=== PATIENT | female | born 1995 | race African-American/Black ===

== ENCOUNTER 2019-09-14 13:04 | Emergency (ER) | payer OTHER ==
[2019-09-14] MEDS ORDERED: ALBUTEROL SO4 2.5/IPRATROPIUM 0.5 INH SOL 3 ML VIAL.NEB. NEB ONE (13:12)
[2019-09-14 13:13] VITALS: BMI 39.1
--- NOTE | 2019-09-14 13:14 | PDOC ---
Rapid Medical Evaluation Time Seen by Provider: 09/14/19 13:09 Medical Evaluation: Allergies Allergy/AdvReac Type Severity Reaction Status Date / Time divalproex sodium Allergy Verified 08/12/19 22:42 [From Depakote] meperidine HCl [From Demerol] Allergy Verified 08/12/19 22:42 09/14/19 13:10 Pt presents for chest pain and cough for one day. She states the chest pain is stabbing and worse when she takes a deep breath or when she touches her chest. No recent travel. Exam: Tachy 110, O2 sat 95. Lungs diminished at the bases Orders: EKG, CXR, duoneb, influenza Pt to proceed to the ER for further evaluation Discharge Disposition - Diagnosis Cough - Referrals - Patient Instructions - Post Discharge Activity
--- NOTE | 2019-09-14 13:53 | EKG ---
Test Reason : Blood Pressure : / mmHG Vent. Rate : 110 BPM Atrial Rate : 110 BPM P-R Int : 144 ms QRS Dur : 074 ms QT Int : 312 ms P-R-T Axes : 060 016 016 degrees QTc Int : 422 ms POOR DATA QUALITY, INTERPRETATION MAY BE ADVERSELY AFFECTED SINUS TACHYCARDIA OTHERWISE NORMAL ECG WHEN COMPARED WITH ECG OF 16-JUL-2016 17:58, NO SIGNIFICANT CHANGE WAS FOUND Confirmed by Froylan Costa ([id number]) on 09/14/2019 1:53:15 PM Referred By: Confirmed By:Froylan Costa
--- NOTE | 2019-09-14 14:23 | PDOC ---
*Physical Exam - Vital Signs Last Vital Signs Temp Pulse Resp BP Pulse Ox 98.8 F 100 H 18 148/92 99 09/14/19 13:05 09/14/19 13:05 09/14/19 13:05 09/14/19 13:05 09/14/19 13:05 - Physical Exam 09/14/19 14:23 The patient was examined by [jerry Christian] under my direct supervision. I personally evaluated the patient. I concur with the above findings and the plan of care. ED Treatment Course - LABORATORY CBC & Chemistry Diagram: 09/14/19 14:20 09/14/19 14:20 - Medications Given in the ED: ED Medications Discontinued Medications Generic Name Dose Route Start Last Admin Trade Name Freq PRN Reason Stop Dose Admin Albuterol/Ipratropium 1 amp 09/14/19 13:12 09/14/19 13:19 Duoneb - NEB 09/14/19 13:13 1 amp ONCE ONE Administration Discharge - Discharge Information Problems reviewed: Yes Clinical Impression/Diagnosis: Cough Condition: Improved Disposition: HOME - Additional Discharge Information Prescriptions: Azithromycin [Zithromax Tri-Andrez (3 DAYS) -] 500 mg PO DAILY #3 tablet - Follow up/Referral Referrals: Adeline Espinal MD [Primary Care Provider] - - Patient Discharge Instructions Patient Printed Discharge Instructions: DI for Cough -- Adult Additional Instructions: Take Tylenol extra strength or Motrin 600 mg every 6-8 hours for discomfort. Take antibiotics for the next 2 days until completed. Wash hands and cover mouth when coughing. - Post Discharge Activity Work/Back to School Note: Back to Work
[2019-09-14 14:51] LABS: BASO % 0.4 % (0-2.0); EOS % 0.4 % (0-4.5); HEMATOCRIT 37.8 % (32.4-45.2); HEMOGLOBIN 12.8 GM/dL (10.7-15.3); LYMPH % 9.1 % (8-40); MCH 30.4 pg (25.7-33.7); MCHC 33.7 g/dl (32.0-36.0); MEAN CELL VOLUME 90.3 fl (80-96); MEAN PLT VOLUME 7.8 fl (7.5-11.1); MONO % 6.5 % (3.8-10.2); NEUT % 83.6 % (42.8-82.8); PLATELET COUNT 314 K/MM3 (134-434); RBC 4.19 M/mm3 (3.60-5.2); RDW 13.4 % (11.6-15.6); WHITE BLOOD COUNT 9.2 K/mm3 (4.0-10.0)
[2019-09-14 15:05] LABS: INR 1.11 (0.83-1.09); PROTHROMBIN TIME (PATIENT) 13.1 SEC (9.7-13.0)
[2019-09-14] MEDS ORDERED: KETOROLAC TROMETHAMINE 30 MG/1 ML VIAL IVPUSH ONE (15:15)
--- NOTE | 2019-09-14 15:18 | PDOC ---
History of Present Illness - General Chief Complaint: Pain Stated Complaint: CHEST PAIN Time Seen by Provider: 09/14/19 13:09 History Source: Patient Exam Limitations: No Limitations - History of Present Illness Initial Comments: 09/14/19 15:15 23-year-old female presents the ED with complaints of midsternal sharp pain worsened with deep breathing and coughing radiating to her back upon awakening this morning. Patient states no recent illness recent injury, travel smoking history, or medical history. Patient states took multi symptoms Tylenol with good effect but only for a few hours to relieve her discomfort. Patient denies recent sick contacts recent vaccinations, or job related environmental concern. Is this a multiple visit Asthma Patient?: No Timing/Duration: 4-6 hours Severity: mild Associated Symptoms: reports: chest pain, cough Past History - Travel Traveled outside of the country in the last 30 days: No Close contact w/someone who was outside of country & ill: No - Past Medical History Allergies/Adverse Reactions: Allergies Allergy/AdvReac Type Severity Reaction Status Date / Time divalproex sodium Allergy Verified 09/14/19 13:13 [From Depakote] meperidine HCl [From Demerol] Allergy Verified 09/14/19 13:13 Home Medications: Ambulatory Orders NK [No Known Home Medication] 09/14/19 Cardiac Disorders: No COPD: No - Reproductive History (#): 2 Para: 0 Spontaneous : 1 - Psycho Social/Smoking Cessation Hx Smoking History: Never smoked Number of Cigarettes Smoked Daily: 3 'Breaking Loose' booklet given: 07/16/16 Hx Alcohol Use: Yes (RARE) Drug/Substance Use Hx: No Substance Use Type: None Patient Lives Alone: No Lives with/in: daughter Review of Systems - Review of Systems Is the patient limited Divehi proficient: No Constitutional: No: Symptoms Reported HEENTM: No: Symptoms Reported Respiratory: Yes: Cough Cardiac (ROS): Yes: Chest Pain ABD/GI: No: Symptoms Reported : No: Symptoms Reported Musculoskeletal: No: Symptoms Reported Integumentary: No: Symptoms Reported Neurological: No: Symptoms reported Endocrine: No: Symptoms Reported Hematologic/Lymphatic: No: Symptoms Reported *Physical Exam - Vital Signs Last Vital Signs Temp Pulse Resp BP Pulse Ox 98.8 F 100 H 18 148/92 99 09/14/19 13:05 09/14/19 13:05 09/14/19 13:05 09/14/19 13:05 09/14/19 13:05 - Physical Exam General Appearance: Yes: Nourished, Appropriately Dressed. No: Apparent Distress HEENT: positive: EOMI, MAIK, TMs Normal, Pharynx Normal. negative: Pale Conjunctivae Neck: positive: Supple Respiratory/Chest: positive: Chest Tender (Bilateral chest wall near sternum, bilateral thoracic paraspinous ), Lungs Clear, Normal Breath Sounds. negative: Respiratory Distress, Accessory Muscle Use Cardiovascular: positive: Regular Rhythm, Regular Rate (88 on portable monitor) . negative: Murmur Gastrointestinal/Abdominal: positive: Soft. negative: Tenderness Integumentary: positive: Normal Color, Warm, Moist Neurologic: positive: Motor Strength 5/5 (Ambulatory) ED Treatment Course - LABORATORY CBC & Chemistry Diagram: 09/14/19 14:20 09/14/19 14:20 - ADDITIONAL ORDERS Additional order review: Laboratory Results 09/14/19 14:20 PT with INR 13.10 H INR 1.11 H 09/14/19 14:20 RBC 4.19 MCV 90.3 MCHC 33.7 RDW 13.4 MPV 7.8 Neutrophils % 83.6 H D Lymphocytes % 9.1 D Monocytes % 6.5 Eosinophils % 0.4 D Basophils % 0.4 - Medications Given in the ED: ED Medications Discontinued Medications Generic Name Dose Route Start Last Admin Trade Name Freq PRN Reason Stop Dose Admin Albuterol/Ipratropium 1 amp 09/14/19 13:12 09/14/19 13:19 Duoneb - NEB 09/14/19 13:13 1 amp ONCE ONE Administration Medical Decision Making - Medical Decision Making 09/14/19 15:19 Patient with complaints of midsternal pain rating to her back since awakening this morning along with cough. Patient took multisymptom Tylenol with moderate effect. Exam: Patient reproducible bilateral sternal tenderness along with thoracic paraspinous. Lungs clear Plan: Toradol IV labs x-ray EKG ordered from [facility]. We will discharge home with azithromycin Discharge - Discharge Information Problems reviewed: Yes Clinical Impression/Diagnosis: Cough Condition: Improved Disposition: HOME - Follow up/Referral Referrals: Adeline Espinal MD [Primary Care Provider] - - Patient Discharge Instructions Patient Printed Discharge Instructions: DI for Cough -- Adult Additional Instructions: Take Tylenol extra strength or Motrin 600 mg every 6-8 hours for discomfort. Take antibiotics for the next 2 days until completed. Wash hands and cover mouth when coughing. - Post Discharge Activity Work/Back to School Note: Back to Work
[2019-09-14] MEDS ORDERED: KETOROLAC TROMETHAMINE 30 MG/1 ML VIAL ONE (15:20)
[2019-09-14 15:33] VITALS: BP 128/78; PULSE 88; TEMP 98.2
[2019-09-14 15:47] LABS: ALBUMIN 3.8 g/dl (3.4-5.0); BILIRUBIN,TOTAL 0.2 mg/dL (0.2-1); BLOOD UREA NITROGEN 15.3 mg/dL (7-18); CREATININE 0.7 mg/dL (0.55-1.3); POTASSIUM 3.7 mmol/L (3.5-5.1); TOT PROT 7.6 g/dl (6.4-8.2)
== END 2019-09-14 15:30 | disposition home or self-care (01) ==
LOC: JER 13:04
PROC: 3E0F7GC Introduction of Other Therapeutic Substance into Respiratory Tract, Via Natural or Artificial Opening (ICD-10-PCS; principal; 2019-09-14)
PROC: 3E0333Z Introduction of Anti-inflammatory into Peripheral Vein, Percutaneous Approach (ICD-10-PCS; 2019-09-14)
DX: R05 Cough (principal)
CPT/HCPCS: 36415; 71046-TC-FY; 80053; 82550; 82553; 84484; 85025; 85610; 87804; 93005; 93010; 99283-25

== ENCOUNTER 2020-02-28 13:46 | Emergency (ER) | payer OTHER ==
--- NOTE | 2020-02-28 14:21 | PDOC ---
History of Present Illness - General Chief Complaint: Weakness Stated Complaint: Weakness Time Seen by Provider: 02/28/20 14:04 - History of Present Illness Initial Comments: Julia Colon is a 24 y/o female with no reported PMH presenting today with generalized weakness that started two hours ago. 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 Feels lightheaded but no LOC. No chest pain/shortness of breath. No headache. No abd pain. No upper or lower extremity pain. No dysuria/diarrhea. No nausea/vomiting. No fever/chills. Not on any OCPs. No recent travel. No smoking history. Currently on her menstrual cycle. Past History - Medical History Allergies/Adverse Reactions: Allergies Allergy/AdvReac Type Severity Reaction Status Date / Time divalproex sodium Allergy Verified 09/14/19 13:13 [From Depakote] meperidine HCl [From Demerol] Allergy Verified 09/14/19 13:13 Home Medications: Ambulatory Orders Azithromycin [Zithromax Tri-Andrez (3 DAYS) -] 500 mg PO DAILY #3 tablet 09/14/19 Cardiac Disorders: No COPD: No - Reproductive History (#): 2 Para: 0 Spontaneous : 1 - Psycho-Social/Smoking History Smoking History: Never smoked Number of Cigarettes Smoked Daily: 3 'Breaking Loose' booklet given: 07/16/16 - Substance Abuse Hx (Audit-C & DAST Scrn) How often the patient has a drink containing alcohol: Never Score: In Men: 4 or > Positive; In Women: 3 or > Positive: 0 Screen Result (Pos requires Nsg. Audit-10AR): Negative In the last yr the pt used illegal drug/Rx for NonMed reason: No Score: Yes response is considered Positive: 0 Screen Result (Positive result requires Nsg. DAST-10): Negative Review of Systems - Review of Systems Comments:: GENERAL/CONSTITUTIONAL: No fever or chills. Reports generalized weakness. HEAD, EYES, EARS, NOSE AND THROAT: No change in vision. No change in hearing. No sore throat._ CARDIOVASCULAR: No chest pain or shortness of breath_ RESPIRATORY: Denies cough, hemoptysis_ GASTROINTESTINAL: No nausea, vomiting, diarrhea or constipation._ GENITOURINARY: No dysuria, frequency, or change in urination._ MUSCULOSKELETAL: No joint or muscle swelling or pain. No neck or back pain. Reports left arm weakness. SKIN: No rash_ NEUROLOGIC: No headache, vertigo, loss of consciousness, or change in strength/sensation. ENDOCRINE: No increased thirst. No abnormal weight change_ HEMATOLOGIC/LYMPHATIC: No anemia, easy bleeding, or history of blood clots._ ALLERGIC/IMMUNOLOGIC: No hives or skin allergy._ *Physical Exam - Vital Signs Last Vital Signs Temp Pulse Resp BP Pulse Ox 98.0 F 110 H 20 135/75 96 02/28/20 13:55 02/28/20 13:55 02/28/20 13:55 02/28/20 13:55 02/28/20 13:55 - Physical Exam GENERAL: Awake, alert, and oriented to person/place/time, in no acute distress_ HEAD: No signs of trauma, normocephalic, atraumatic _ EYES: PERRLA, EOMI, sclera anicteric, conjunctiva clear_ ENT: Hearing grossly normal, nares patent, oropharynx clear without exudates. No uvular deviation. Moist mucosa_ NECK: Normal ROM, supple, no lymphadenopathy, JVD, or masses_ LUNGS: No distress, speaks in full sentences, clear to auscultation bilaterally _ HEART: Regular rate and rhythm, normal S1 and S2, no murmurs appreciated, peripheral pulses normal and equal bilaterally._ ABDOMEN: Soft, nontender, normoactive bowel sounds. No guarding, no rebound. No masses_ EXTREMITIES: Normal inspection, Normal range of motion, no edema. No clubbing or cyanosis_ NEUROLOGICAL: Mental status: A/Ox3 CN II-XII tested and intact. Sensation intact to sharp/dull differentiation in all extremities. Motor: Normal tone and bulk. No abnormal movements appreciated. No pronator drift. Strength tested and 5/5 in bilateral wrist flexion/extension, elbow flexion/extension, shoulder abduction, straight leg raise, knee fl exion/extension, ankle dorsiflexion/plantarflexion. Patient ambulates with a steady gait. Coordination: Finger to nose and heel to simmons testing intact bilaterally. SKIN: Warm, Dry, normal turgor, no rashes or lesions noted_ ED Treatment Course - LABORATORY CBC & Chemistry Diagram: 02/28/20 15:00 02/28/20 14:41 Medical Decision Making - Medical Decision Making 24F no reported PMH presented today with generalized weakness and left arm weakness that started this morning. Pt ambulatory in the ED. -cbc, cmp -ekg, cxr -CTA -ua, ucx 02/28/20 14:56 EKG shows 99 bpm, NSR, no axis deviation, NE 144, QTc 438, no ST elevation/depression. 02/28/20 15:19 CXR negative for acute chest pathology. 02/28/20 17:06 Labs reviewed. Laboratory Last Values WBC 9.9 K/mm3 (4.0-10.0) 02/28/20 15:00 RBC 4.18 M/mm3 (3.60-5.2) 02/28/20 15:00 Hgb 12.9 GM/dL (10.7-15.3) 02/28/20 15:00 Hct 38.5 % (32.4-45.2) 02/28/20 15:00 MCV 92.1 fl (80-96) 02/28/20 15:00 MCH 30.8 pg (25.7-33.7) 02/28/20 15:00 MCHC 33.5 g/dl (32.0-36.0) 02/28/20 15:00 RDW 13.6 % (11.6-15.6) 02/28/20 15:00 Plt Count 362 K/MM3 (134-434) 02/28/20 15:00 MPV 8.5 fl (7.5-11.1) 02/28/20 15:00 Absolute Neuts (auto) 6.8 K/mm3 (1.5-8.0) 02/28/20 15:00 Neutrophils % 68.3 % (42.8-82.8) 02/28/20 15:00 Lymphocytes % 24.6 % (8-40) D 02/28/20 15:00 Monocytes % 5.4 % (3.8-10.2) 02/28/20 15:00 Eosinophils % 0.7 % (0-4.5) 02/28/20 15:00 Basophils % 1.0 % (0-2.0) 02/28/20 15:00 Nucleated RBC % 0 % (0-0) 02/28/20 15:00 Sodium 140 mmol/L (136-145) 02/28/20 14:41 Potassium 4.2 mmol/L (3.5-5.1) 02/28/20 14:41 Chloride 107 mmol/L (98-107) 02/28/20 14:41 Carbon Dioxide 24 mmol/L (21-32) 02/28/20 14:41 Anion Gap 8 MMOL/L (8-16) 02/28/20 14:41 BUN 10.7 mg/dL (7-18) 02/28/20 14:41 Creatinine 0.8 mg/dL (0.55-1.3) 02/28/20 14:41 Est GFR (CKD-EPI)AfAm 118.76 02/28/20 14:41 Est GFR (CKD-EPI)NonAf 102.47 02/28/20 14:41 Random Glucose 99 mg/dL (74-106) 02/28/20 14:41 Calcium 9.4 mg/dL (8.5-10.1) 02/28/20 14:41 Total Bilirubin 0.4 mg/dL (0.2-1) 02/28/20 14:41 AST 18 U/L (15-37) 02/28/20 14:41 ALT 20 U/L (13-61) 02/28/20 14:41 Alkaline Phosphatase 74 U/L (45-117) 02/28/20 14:41 Total Protein 7.7 g/dl (6.4-8.2) 02/28/20 14:41 Albumin 3.7 g/dl (3.4-5.0) 02/28/20 14:41 TSH 1.12 uIU/ml (0.358-3.74) 02/28/20 14:41 Serum , Qual Negative 02/28/20 15:00 Urine Color Yellow 02/28/20 14:55 Urine Appearance Clear 02/28/20 14:55 Urine pH 6.5 (5.0-8.0) 02/28/20 14:55 Ur Specific [place] 1.017 (1.010-1.035) 02/28/20 14:55 Urine Protein Negative (NEGATIVE) 02/28/20 14:55 Urine Glucose (UA) Negative (NEGATIVE) 02/28/20 14:55 Urine Ketones Negative (NEGATIVE) 02/28/20 14:55 Urine Blood 3+ (NEGATIVE) H 02/28/20 14:55 Urine Nitrite Negative (NEGATIVE) 02/28/20 14:55 Urine Bilirubin Negative (NEGATIVE) 02/28/20 14:55 Urine Urobilinogen 0.2 mg/dL (0.2-1.0) 02/28/20 14:55 Ur Leukocyte Esterase Trace (NEGATIVE) 02/28/20 14:55 Urine WBC (Auto) 6 /uL (0-25.8) 02/28/20 14:55 Urine RBC (Auto) 353 /uL (0-23.9) 02/28/20 14:55 Urine Casts (Auto) 0 /uL (0-3.1) 02/28/20 14:55 U Epithel Cells (Auto) 10 /uL (0-25.1) 02/28/20 14:55 Urine Bacteria (Auto) 32 /uL (0-1359) 02/28/20 14:55 Urine HCG, Qual Negative 02/28/20 14:55 02/28/20 18:12 CTA negative for PE or acute intrathoracic pathology. 02/28/20 18:43 Pt reassessed. Plan to d/c home with PCP f/u. All questions answered. Return precautions given. Pt verbalized understanding and agreement with plan. Discharge - Discharge Information Problems reviewed: Yes Clinical Impression/Diagnosis: Lightheadedness, Weakness Condition: Stable Disposition: HOME - Admission No - Follow up/Referral Referrals: Adeline Espinal MD [Primary Care Provider] - - Patient Discharge Instructions Patient Printed Discharge Instructions: DI for Muscle Weakness Additional Instructions: Please keep yourself as hydrated and nourished as possible. Please make a follow up appointment with your primary care doctor. If you experience any new, worsening or concerning symptoms, including worsening weakness, lethargy, arm pain, chest pain, shortness of breath, nausea, vomiting, dizziness, or any other concerns, please return to the emergency department. - Post Discharge Activity
[2020-02-28] MEDS ORDERED: SODIUM CHLORIDE 0.9% 500 ML INFUS.BAG IV ONE (14:27)
[2020-02-28 14:29] VITALS: BP 135/75; PULSE 110; TEMP 98; BMI 30.7
--- NOTE | 2020-02-28 15:28 | PDOC ---
Attending Attestation - Resident Resident Name: KristianHector - ED Attending Attestation I have performed the following: I have examined & evaluated the patient, The case was reviewed & discussed with the resident, I agree w/resident's findings & plan, Exceptions are as noted - HPI HPI: 24 yo F no stated PMH presents with generalized weakness, near syncope. She states she developed chest tightness as well. Denies SOB, leg swelling, calf pain. Denies any recent immobilization, OCP use, smoking. No recent illness, no fever/chills. - Physicial Exam PE: GENERAL: Awake, alert, and fully oriented. Appears anxious. Hyperventilating, sitting in tripod position on stretcher. HEAD: No signs of trauma EYES: PERRLA, EOMI, sclera anicteric, conjunctiva clear ENT: Auricles normal inspection, hearing grossly normal, nares patent, oropharynx clear without exudates. Moist mucosa NECK: Normal ROM, supple, no lymphadenopathy, JVD, or masses LUNGS: Breath sounds equal, clear to auscultation bilaterally. No wheezes, and no crackles HEART: Regular rate and rhythm, normal S1 and S2, no murmurs, rubs or gallops ABDOMEN: Soft, nontender, normoactive bowel sounds. No guarding, no rebound. No masses EXTREMITIES: Normal range of motion, no edema. No clubbing or cyanosis. No cords, erythema, or tenderness NEUROLOGICAL: Cranial nerves II through XII grossly intact. Normal speech, normal gait. Motor and sensation intact SKIN: Warm, dry, normal turgor, no rashes or lesions noted. - Medical Decision Making Based on vitals and her initial appearance, CTA was obtained. No acute findings. Stable for DC home. Discharge - Discharge Information Problems reviewed: Yes Clinical Impression/Diagnosis: Lightheadedness, Weakness Condition: Stable Disposition: HOME - Follow up/Referral Referrals: Adeline Espinal MD [Primary Care Provider] - - Patient Discharge Instructions Patient Printed Discharge Instructions: DI for Muscle Weakness Additional Instructions: Please keep yourself as hydrated and nourished as possible. Please make a follow up appointment with your primary care doctor. If you experience any new, worsening or concerning symptoms, including worsening weakness, lethargy, arm pain, chest pain, shortness of breath, nausea, vomiting, dizziness, or any other concerns, please return to the emergency department. - Post Discharge Activity
[2020-02-28 15:43] LABS: EOS % 0.7 % (0-4.5); HEMATOCRIT 38.5 % (32.4-45.2); HEMOGLOBIN 12.9 GM/dL (10.7-15.3); LYMPH % 24.6 % (8-40); MCH 30.8 pg (25.7-33.7); MCHC 33.5 g/dl (32.0-36.0); MEAN CELL VOLUME 92.1 fl (80-96); MEAN PLT VOLUME 8.5 fl (7.5-11.1); MONO % 5.4 % (3.8-10.2); NEUT % 68.3 % (42.8-82.8); PLATELET COUNT 362 K/MM3 (134-434); RBC 4.18 M/mm3 (3.60-5.2); RDW 13.6 % (11.6-15.6); WHITE BLOOD COUNT 9.9 K/mm3 (4.0-10.0)
[2020-02-28 15:51] LABS: HCG,QUALITATIVE URINE Negative
[2020-02-28 15:53] LABS: EPI CELLS 10 /uL (0-25.1); HYALINE CASTS 0 /uL (0-3.1); PH,URINE 6.5 (5.0-8.0); URINE APPEARANCE CLEAR; URINE BACTERIA 32 /uL (0-1359); URINE BILIRUBIN NEGATIVE (NEGATIVE); URINE COLOR YELLOW; URINE GLUCOSE (UA) NEGATIVE (NEGATIVE); URINE KETONE NEGATIVE (NEGATIVE); URINE LEUK ESTERASE TRACE (NEGATIVE); URINE NITRITE NEGATIVE (NEGATIVE); URINE PROTEIN NEGATIVE (NEGATIVE); URINE RBC 353 /uL (0-23.9); URINE UROBILINOGEN 0.2 mg/dL (0.2-1.0); URINE WBC 6 /uL (0-25.8)
[2020-02-28 15:56] LABS: ALBUMIN 3.7 g/dl (3.4-5.0); BILIRUBIN,TOTAL 0.4 mg/dL (0.2-1); BLOOD UREA NITROGEN 10.7 mg/dL (7-18); CALCIUM 9.4 mg/dL (8.5-10.1); CREATININE 0.8 mg/dL (0.55-1.3); POTASSIUM 4.2 mmol/L (3.5-5.1); TOT PROT 7.7 g/dl (6.4-8.2)
--- NOTE | 2020-02-28 16:08 | EKG ---
Test Reason : Blood Pressure : / mmHG Vent. Rate : 099 BPM Atrial Rate : 099 BPM P-R Int : 144 ms QRS Dur : 074 ms QT Int : 342 ms P-R-T Axes : 057 016 021 degrees QTc Int : 438 ms NORMAL SINUS RHYTHM NORMAL ECG Confirmed by MD ESCOBAR GREGORY ([id number]) on 02/28/2020 4:08:11 PM Referred By: Confirmed By:CJ ESCOBAR MD
== END 2020-02-28 19:06 | disposition home or self-care (01) ==
LOC: JER 13:46
DX: R53.1 Weakness (principal); R42 Dizziness and giddiness
CPT/HCPCS: 36415; 71045-TC-FY; 71275-TC; 80053; 81003; 84443; 84703; 85025; 87086; 87186; 93005; 93010; 99285-25; Q9967

== ENCOUNTER 2020-07-02 16:57 | Emergency (ER) | payer OTHER ==
[2020-07-02] MEDS ORDERED: ONDANSETRON 4 MG/2 ML VIAL IVPUSH ONE (17:20)
[2020-07-02] MEDS ORDERED: SODIUM CHLORIDE 1,000 ML IV STA (17:20)
[2020-07-02] MEDS ORDERED: morphine CARPU-JECT 4 MG/1 ML DISP.SYRIN IVPUSH ONE (17:20)
[2020-07-02 17:23] VITALS: TEMP 98.6; BMI 44.6
[2020-07-02] MEDS ORDERED: morphine SULFATE 4 MG/ML VIAL ONE (18:48)
[2020-07-02 18:58] LABS: BASO % 0.4 % (0-2.0); EOS % 1.1 % (0-4.5); HEMATOCRIT 38.6 % (32.4-45.2); HEMOGLOBIN 13.2 GM/dL (10.7-15.3); LYMPH % 31.8 % (8-40); MCH 30.7 pg (25.7-33.7); MCHC 34.1 g/dl (32.0-36.0); MEAN CELL VOLUME 89.9 fl (80-96); MEAN PLT VOLUME 7.6 fl (7.5-11.1); NEUT % 60.7 % (42.8-82.8); PLATELET COUNT 352 K/MM3 (134-434); RBC 4.29 M/mm3 (3.60-5.2); RDW 13.1 % (11.6-15.6); WHITE BLOOD COUNT 10.7 K/mm3 (4.0-10.0)
[2020-07-02 19:04] LABS: HCG,QUALITATIVE URINE Negative
[2020-07-02 19:08] LABS: PH,URINE 6.5 (5.0-8.0); URINE APPEARANCE CLEAR; URINE BILIRUBIN NEGATIVE (NEGATIVE); URINE COLOR YELLOW; URINE GLUCOSE (UA) NEGATIVE (NEGATIVE); URINE KETONE NEGATIVE (NEGATIVE); URINE LEUK ESTERASE NEGATIVE (NEGATIVE); URINE NITRITE NEGATIVE (NEGATIVE); URINE PROTEIN NEGATIVE (NEGATIVE); URINE UROBILINOGEN 0.2 mg/dL (0.2-1.0)
[2020-07-02 19:13] LABS: POTASSIUM 3.9 mmol/L (3.5-5.1)
[2020-07-02 19:15] LABS: ALBUMIN 3.8 g/dl (3.4-5.0)
[2020-07-02 19:18] LABS: CREATININE 0.8 mg/dL (0.55-1.3)
[2020-07-02 19:20] LABS: BILIRUBIN,TOTAL 0.4 mg/dL (0.2-1); TOT PROT 7.8 g/dl (6.4-8.2)
[2020-07-02 21:59] VITALS: BP 126/80; PULSE 82
== END 2020-07-02 21:59 | disposition home or self-care (01) ==
LOC: JER 16:57
PROC: 3E033NZ Introduction of Analgesics, Hypnotics, Sedatives into Peripheral Vein, Percutaneous Approach (ICD-10-PCS; principal; 2020-07-02)
PROC: 3E033GC Introduction of Other Therapeutic Substance into Peripheral Vein, Percutaneous Approach (ICD-10-PCS; 2020-07-02)
PROC: 3E0337Z Introduction of Electrolytic and Water Balance Substance into Peripheral Vein, Percutaneous Approach (ICD-10-PCS; 2020-07-02)
DX: R10.31 Right lower quadrant pain (principal)
CPT/HCPCS: 36415; 71046-TC-FY; 76705-TC; 80053; 81003; 83690; 84703; 85025; 87086; 99285-25

== ENCOUNTER 2021-04-19 07:09 | Emergency (ER) | payer OTHER ==
[2021-04-19 07:36] VITALS: BP 118/77; PULSE 110; TEMP 99.1; BMI 44.3
[2021-04-19] MEDS ORDERED: ACETAMINOPHEN 325 MG TABLET (FP) PO ONE (07:59)
[2021-04-19] MEDS ORDERED: ACETAMINOPHEN 325 MG TABLET (FP) ONE (09:18)
[2021-04-19] MEDS ORDERED: ONDANSETRON *ODT* 4 MG TABLET ONE (09:19)
[2021-04-19] MEDS ORDERED: ONDANSETRON *ODT* 4 MG TABLET SL ONE (09:20)
== END 2021-04-19 09:25 | disposition home or self-care (01) ==
LOC: JER 07:09
DX: B34.9 Viral infection, unspecified (principal)
CPT/HCPCS: 71046-TC-FY; 87880; 99284-25; C9803; Q0162; U0003; U0005

== ENCOUNTER 2021-04-24 11:25 | Emergency (ER) | payer OTHER ==
[2021-04-24 11:31] VITALS: BP 124/86; PULSE 96; TEMP 97.8; BMI 32.5
[2021-04-24 12:54] LABS: BASO % 0.2 % (0-2.0); EOS % 2.3 % (0-4.5); HEMATOCRIT 36.1 % (32.4-45.2); HEMOGLOBIN 12.3 GM/dL (10.7-15.3); LYMPH % 28.7 % (8-40); MCH 29.9 pg (25.7-33.7); MCHC 33.9 g/dl (32.0-36.0); MEAN PLT VOLUME 7.3 fl (7.5-11.1); MONO % 6.4 % (3.8-10.2); NEUT % 62.4 % (42.8-82.8); PLATELET COUNT 403 10^3/uL (134-434); RBC 4.11 M/mm3 (3.60-5.2); RDW 13.4 % (11.6-15.6); WHITE BLOOD COUNT 10.9 K/mm3 (4.0-10.0)
[2021-04-24 13:03] LABS: HCG,QUALITATIVE URINE Negative
[2021-04-24 13:13] LABS: CHLORIDE 106 mmol/L (98-107); SODIUM 137 mmol/L (136-145)
[2021-04-24 13:18] LABS: ALBUMIN 3.4 g/dl (3.4-5.0); ANION GAP 7 MMOL/L (8-16); CALCIUM 9.1 mg/dL (8.5-10.1); CO2 24 mmol/L (21-32); GLUCOSE,RANDOM 92 mg/dL (74-106)
[2021-04-24 13:21] LABS: CREATININE 0.7 mg/dL (0.55-1.3); SGOT/AST 15 U/L (15-37); SGPT/ALT 22 U/L (13-61)
[2021-04-24 13:23] LABS: BILIRUBIN,TOTAL 0.3 mg/dL (0.2-1); TOT PROT 7.8 g/dl (6.4-8.2)
[2021-04-24 13:24] LABS: ALK PHOS 84 U/L (45-117)
[2021-04-24 15:53] LABS: EPI CELLS 32 /uL (0-25.1); HYALINE CASTS 3 /uL (0-3.1); PH,URINE 6.5 (5.0-8.0); URINE APPEARANCE CLOUDY; URINE BACTERIA 414 /uL (0-1359); URINE BILIRUBIN NEGATIVE (NEGATIVE); URINE COLOR YELLOW; URINE GLUCOSE (UA) TRACE (NEGATIVE); URINE KETONE TRACE (NEGATIVE); URINE LEUK ESTERASE 1+ (NEGATIVE); URINE NITRITE NEGATIVE (NEGATIVE); URINE PROTEIN NEGATIVE (NEGATIVE); URINE RBC 4 /uL (0-23.9); URINE UROBILINOGEN 0.2 mg/dL (0.2-1.0); URINE WBC 20 /uL (0-25.8)
== END 2021-04-24 14:30 | disposition home or self-care (01) ==
LOC: JER 11:25
DX: R06.02 Shortness of breath (principal)
CPT/HCPCS: 36415; 71046-TC-FY; 80053; 81003; 82550; 84443; 84484; 84703; 85025; 93005; 93010; 99285-25; C9803; U0003; U0005

== ENCOUNTER 2021-05-29 16:05 | Emergency (ER) | payer OTHER ==
[2021-05-29 16:49] VITALS: BP 132/82; PULSE 98; TEMP 98.1; BMI 45.1
[2021-05-29] MEDS ORDERED: LORazepam 2 MG TABLET PO ONE (17:16)
[2021-05-29] MEDS ORDERED: LORazepam 1 MG TABLET ONE (17:23)
== END 2021-05-29 18:30 | disposition home or self-care (01) ==
LOC: JER 16:05
DX: F41.9 Anxiety disorder, unspecified (principal)
CPT/HCPCS: 99283-25

== ENCOUNTER 2021-07-29 15:00 | Emergency (ER) | payer OTHER ==
[2021-07-29 15:31] VITALS: BP 144/87; PULSE 132; TEMP 99.3; BMI 40.7
[2021-07-29 18:06] LABS: PH,URINE 8.5 (5.0-8.0); URINE APPEARANCE TURBID; URINE BILIRUBIN NEGATIVE (NEGATIVE); URINE COLOR YELLOW; URINE GLUCOSE (UA) NEGATIVE (NEGATIVE); URINE KETONE 2+ (NEGATIVE); URINE LEUK ESTERASE NEGATIVE (NEGATIVE); URINE NITRITE NEGATIVE (NEGATIVE); URINE PROTEIN TRACE (NEGATIVE)
== END 2021-07-29 21:37 | disposition home or self-care (01) ==
LOC: JER 15:00
PROC: 3E0233Z Introduction of Anti-inflammatory into Muscle, Percutaneous Approach (ICD-10-PCS; principal; 2021-07-29)
DX: U07.1 COVID-19 (principal); R10.11 Right upper quadrant pain
CPT/HCPCS: 71046-TC-FY; 81003; 87086; 87651; 87804; 99284-25; C9803; U0003; U0005

== ENCOUNTER 2022-04-09 21:31 | Emergency (ER) | payer OTHER ==
[2022-04-09 21:42] VITALS: BP 117/75; PULSE 77; RESP 19; TEMP 97.9; BMI 41.0
[2022-04-09 23:42] LABS: EPI CELLS 14 /uL (0-25.1); HCG,QUALITATIVE URINE Negative; HYALINE CASTS 0 /uL (0-3.1); URINE APPEARANCE CLEAR; URINE BACTERIA 295 /uL (0-1359); URINE BILIRUBIN NEGATIVE (NEGATIVE); URINE COLOR YELLOW; URINE GLUCOSE (UA) NEGATIVE (NEGATIVE); URINE KETONE 1+ (NEGATIVE); URINE LEUK ESTERASE 2+ (NEGATIVE); URINE NITRITE NEGATIVE (NEGATIVE); URINE PROTEIN NEGATIVE (NEGATIVE); URINE RBC 7 /uL (0-23.9); URINE UROBILINOGEN 0.2 mg/dL (0.2-1.0); URINE WBC 110 /uL (0-25.8)
[2022-04-10 00:57] LABS: BASO % 0.3 % (0-2.0); EOS % 0.9 % (0-4.5); HEMATOCRIT 35.9 % (32.4-45.2); HEMOGLOBIN 11.9 GM/dL (10.7-15.3); LYMPH % 22.7 % (8-40); MCH 29.7 pg (25.7-33.7); MCHC 33.1 g/dl (32.0-36.0); MEAN CELL VOLUME 89.7 fl (80-96); MEAN PLT VOLUME 7.7 fl (7.5-11.1); MONO % 4.2 % (3.8-10.2); NEUT % 71.9 % (42.8-82.8); PLATELET COUNT 307 10^3/uL (134-434); RBC 3.99 M/mm3 (3.60-5.2); RDW 13.5 % (11.6-15.6); WHITE BLOOD COUNT 16.4 K/mm3 (4.0-10.0)
[2022-04-10 01:24] LABS: ALBUMIN 3.6 g/dl (3.4-5.0); BLOOD UREA NITROGEN 12.6 mg/dL (7-18)
[2022-04-10 01:27] LABS: CREATININE 0.7 mg/dL (0.55-1.3)
[2022-04-10 01:29] LABS: BILIRUBIN,TOTAL 0.4 mg/dL (0.2-1); TOT PROT 7.2 g/dl (6.4-8.2)
[2022-04-10] MEDS ORDERED: CEFTRIAXONE 1,000 MG in DEXTROSE 5%-WATER - 50 ML IVPB ONE (01:38)
[2022-04-10] MEDS ORDERED: CEFTRIAXONE 1 GM/50 ML BAG ONE (02:07)
== END 2022-04-10 03:31 | disposition home or self-care (01) ==
LOC: JER 21:31
DX: R10.32 Left lower quadrant pain (principal); N39.0 Urinary tract infection, site not specified
CPT/HCPCS: 36415; 74177-TC; 76830-TC; 80053; 81003; 84703; 85025; 87086; 87491; 87591; 99285-25; Q9967

== ENCOUNTER 2022-06-09 13:45 | Emergency (ER) | payer OTHER ==
[2022-06-09 13:59] VITALS: BP 140/85; PULSE 81; RESP 18; TEMP 98.2; BMI 43.0
[2022-06-09] MEDS ORDERED: ACETAMINOPHEN 500 MG TABLET (FP) PO ONE (15:35)
== END 2022-06-09 16:17 | disposition home or self-care (01) ==
LOC: JER 13:45
DX: H43.393 Other vitreous opacities, bilateral (principal)
CPT/HCPCS: 0241U-QW; 99283-25

== ENCOUNTER 2022-09-08 11:54 | Emergency (ER) | payer OTHER ==
[2022-09-08 11:59] VITALS: BP 125/73; PULSE 104; RESP 18; BMI 41.8
[2022-09-08] MEDS ORDERED: ACETAMINOPHEN 1000 MG/100 ML BAG IVPB ONE (12:34)
[2022-09-08] MEDS ORDERED: FAMOTIDINE 20 MG/50 ML IVPB 20 MG/50 ML MG IVPB ONE ×2 (12:34→13:10)
[2022-09-08] MEDS ORDERED: ACETAMINOPHEN INJECTION 100 ML IVPB ONE (13:10)
[2022-09-08 15:00] LABS: URINE APPEARANCE CLEAR; URINE BILIRUBIN NEGATIVE (NEGATIVE); URINE COLOR YELLOW; URINE GLUCOSE (UA) NEGATIVE (NEGATIVE); URINE KETONE NEGATIVE (NEGATIVE); URINE LEUK ESTERASE NEGATIVE (NEGATIVE); URINE NITRITE NEGATIVE (NEGATIVE); URINE PROTEIN NEGATIVE (NEGATIVE)
[2022-09-08 15:02] LABS: BASO % 0.4 % (0-2.0); EOS % 0.2 % (0-4.5); HCG,QUALITATIVE URINE Negative; HEMATOCRIT 37.1 % (32.4-45.2); HEMOGLOBIN 12.4 GM/dL (10.7-15.3); LYMPH % 12.9 % (8-40); MCH 30.4 pg (25.7-33.7); MCHC 33.5 g/dl (32.0-36.0); MEAN CELL VOLUME 90.7 fl (80-96); MONO % 7.4 % (3.8-10.2); NEUT % 79.1 % (42.8-82.8); PLATELET COUNT 316 10^3/uL (134-434); RBC 4.09 M/mm3 (3.60-5.2); RDW 13.9 % (11.6-15.6)
[2022-09-08 15:34] LABS: ALBUMIN 3.6 g/dl (3.4-5.0); CALCIUM 9.2 mg/dL (8.5-10.1)
[2022-09-08 15:37] LABS: CREATININE 0.7 mg/dL (0.55-1.3)
[2022-09-08 15:38] LABS: BILIRUBIN,TOTAL 0.7 mg/dL (0.2-1)
[2022-09-08 15:39] LABS: TOT PROT 7.4 g/dl (6.4-8.2)
== END 2022-09-08 17:04 | disposition home or self-care (01) ==
LOC: JER 11:54 → JERFT 11:54
PROC: 3E033GC Introduction of Other Therapeutic Substance into Peripheral Vein, Percutaneous Approach (ICD-10-PCS; principal; 2022-09-08)
DX: R10.11 Right upper quadrant pain (principal)
CPT/HCPCS: 0241U-QW; 36415; 76705-TC; 80053; 81003; 83690; 84703; 85025; 87086; 99284-25